=== PATIENT | female | born 2000 | race Caucasian/White ===

== ENCOUNTER 2023-10-17 07:38 | Emergency (ER) | payer BC, SELFPAY ==
[2023-10-17] VITALS (8 sets, daily range): BP systolic 108–127; BP diastolic 51–84
[2023-10-17 08:12] LABS: % Basophils 0.3 % (0-2); % Eosinophils 0.7 % (0-6); % Immature Granulocytes 0.4 % (0-0.5); % Lymphocytes 45.4 % (20.5-51.1); % Monocytes 7.2 % (1.7-9.3); Absolute Eosinophils 0.1 10^3/uL (0-0.7); Absolute Immature Granulocytes 0.1 10^3/uL (0-0.05); Absolute Lymphocytes 5.3 10^3/uL (1.2-3.4); Absolute Monocytes 0.8 10^3/uL (0.1-0.6); Absolute Neutrophils 5.3 10^3/uL (1.4-6.5); Hematocrit 38.9 % (37.0-47.0); Hemoglobin 13.9 g/dL (12.0-16.0); Mean Corp Hgb Conc. 35.7 g/dL (33.0-37.0); Mean Corpuscular Volume 89.6 fL (81.0-99.0); Mean Platelet Volume 9.7 fL (7.4-10.4); Nucleated Red Blood Cells % 0 %; Platelet Count 376 10^3/uL (130-400); Red Blood Cell Count 4.34 10^6/uL (4.20-5.40); Red Cell Dist. Width 11.5 % (11.5-14.5); White Blood Cell Count 11.6 10^3/uL (4.8-10.8)
[2023-10-17] MEDS: NSS 1000 IV (08:15)
[2023-10-17] MEDS: TORADOL 15 MG IV (08:16)
[2023-10-17] MEDS: ZOFRAN 4 MG IV (08:16)
[2023-10-17 08:27] LABS: ALT (SGPT) 13 U/L (0-35); AST (SGOT) 20 U/L (14-36); Albumin 4.4 g/dl (3.5-5.0); Alkaline Phosphatase 65 U/L (38-126); Blood Urea Nitrogen 12 mg/dl (7-17); Calcium 9.4 mg/dl (8.4-10.2); Carbon Dioxide 16 mmol/L (22-30); Chloride 106 mmol/L (98-107); Glucose 172 mg/dl (70-99); Lipase 111 U/L (23-300); Potassium 3.3 mmol/L (3.5-5.1); Sodium 136 mmol/L (135-145); Total Bilirubin 0.5 mg/dl (0.2-1.3); Total Protein 6.3 g/dl (6.3-8.2); eGFR > 60.00
[2023-10-17 08:31] LABS: HCG, Serum Qualitative Screen Negative
[2023-10-17 10:45] LABS: Urine Albumin Negative (Neg - Trace); Urine Bilirubin Negative (Negative); Urine Character Clear (Clear); Urine Color Yellow; Urine Glucose Negative (Negative); Urine Ketone Negative (Negative); Urine Leukocyte Negative (Negative); Urine Nitrite Negative (Negative); Urine Occult Blood 4+ (Negative); Urine Specific Gravity 1.005 (<1.030); Urine Urobilinogen Negative (Neg - 1+); Urine pH 6.5 (5.0-9.0)
[2023-10-17 10:57] LABS: Urine Bacteria Few (Negative); Urine Red Blood Cell 0-2 /HPF (0-2); Urine White Cell 0-2 /HPF (0-5)
--- NOTE | 2023-10-17 11:32 | ED.GENMED ---
History of Present Illness
General
Chief Complaint: Abdominal Symptoms
Time Seen by Provider: 10/17/23 08:04
History of Present Illness
History of Present Illness:
Sudden onset of abdominal pain at 7 AM. Started her menses today. Had a similar episode last month but not as severe. Pain is diffuse across her lower abdomen. No back pain flank pain urinary symptoms. No fever.
Past History
Past History
ED Past Medical History: None and Psychiatric (ADHD)
Phy Exam
Physical Exam
Physical Exam:
GENERAL: Alert and oriented. Some tremors. Initially pale.
EYE: Orbits normal.
NECK: Supple
CARDIAC: Regular rate and rhythm without any obvious murmurs.
LUNGS: Clear breath sounds,normal
ABDOMEN: Soft, mild diffuse lower abdominal tenderness. No rebound or guarding no mass or hernia
NEUROLOGICAL: Alert and oriented , grossly non-focal
SKIN: Pale
MUSCULOSKELETAL: No edema,no deformity.Good color
PSYCH: Normal and appropriate interaction.
Course
Orders/Labs/Results
Orders:
Orders
10/17/23 07:57
Test Result ONCE
10/17/23 08:03
CMP [Comprehensive Metabolic Panel] Urgent
Complete Blood Count/With Diff Urgent
HCG, Serum Qualitative Screen Urgent
Lipase Urgent
10/17/23 08:04
IV Insert/Care/Rem.- Treatment PRN
0.9% Sodium Chloride 1000 ml [Nss] 1,000 ml IV BOLUS
US Pelvis W Transvag Combined Urgent
Comment:
Reason For Exam: Severe pelvic pain. Evaluate for torsion or ectop
10/17/23 08:05
Ketorolac [Toradol] 15 mg .ROUTE .STK-MED ONE
Ondansetron Injectable [Zofran] 4 mg .ROUTE .STK-MED ONE
10/17/23 08:06
Ketorolac [Toradol] 15 mg IV NOW STA
Ondansetron Injectable [Zofran] 4 mg IV NOW STA
10/17/23 08:13
Type+Screen Urgent
10/17/23 10:38
Urinalysis Reflex To Culture Urgent
Date Specimen was Collected: 10/17/23
Time Specimen was Collected: 10:37
Urine Microscopic Reflex Cult Urgent
Abnormal Lab Results
10/17/23 10/17/23
08:03 10:38
WBC 11.6 H 10^3/uL
(4.8-10.8)
MCH 32.0 H pg
(27.0-31.0)
Abs Immat Gran (auto) 0.1 H 10^3/uL
(0-0.05)
Absolute Lymphs (auto) 5.3 H 10^3/uL
(1.2-3.4)
Absolute Monos (auto) 0.8 H 10^3/uL
(0.1-0.6)
Potassium 3.3 L mmol/L
(3.5-5.1)
Carbon Dioxide 16 L mmol/L
(22-30)
Glucose 172 H mg/dl
(70-99)
Ur Occult Blood Reflex 4+ A
(Negative)
Urine Bacteria (Reflex) Few A
(Negative)
10/17/23 08:03
10/17/23 08:03
Vital Signs
Initial and Last Documented VS:
Initial Vital Signs
Temp Pulse Resp BP Pulse Ox
97.6 F 80 22 127/61 96
10/17/23 07:40 10/17/23 07:40 10/17/23 07:40 10/17/23 07:40 10/17/23 07:40
Last Documented Vital Signs
Temp Pulse Resp BP Pulse Ox
97.6 F 88 22 116/79 97
10/17/23 07:40 10/17/23 08:39 10/17/23 07:40 10/17/23 10:00 10/17/23 10:30
*Radiology
Radiology exam reviewed: radiology read reviewed (Physiologic fluid. Ovaries normal. Good flow to both ovaries)
*Pulse Oximetry
Patient hypoxic: no
*Critical Care Note
Total Time (30-74mins, 75-104mins- exclusive of procedures): Not Applicable
Update Note
Update Note:
Patient with significant improvement and appears well. No distress. Workup unremarkable. Clearly this was an acute abdominal pain the first day of her menses. Would be most consistent with a ruptured cyst. Highly doubt torsion given her current
clinical appearance and negative ultrasound. No ectopic. Discussed CT scan versus observation. Pluses and minuses discussed. Will hold on CT at this time.
ED Attending Note
-
Portions of this chart may have been created with voice recognition software.� Occasional wrong word or��sound alike� substitutions may have occurred due to the inherent limitations of voice recognition software.
Discharge Plan
Departure
Patient Disposition: Home (Routine Discharge)
Date of Disposition: 10/17/23
Time of Disposition: 11:35
Patient with high blood pressure during this ER visit?: No
Discharge Problem:
Sudden pelvic pain, Minimal hypokalemia, Mild hyperglycemia
Instructions: Hypokalemia, Pelvic Pain (DC), High Blood Sugar, Adult ED
Referrals:
Anibal Vilchis I., [Family Provider] -
Chanda Tamayo MD [Active] -
Activity Restrictions/Additional Instructions:
Call your [facility] physician Wednesday for close follow-up
Return immediately as discussed with increasing pain fever or any other concerning symptoms
Get your blood sugar rechecked
Interventions
Interventions:
*Risk Screen - Suicide Last Done: 10/17/23 08:17
*General Assessment Last Done: 10/17/23 07:57
*Neglect/Abuse Screening Last Done: 10/17/23 08:17
*ED COVID-19 Vaccine History Last Done: 10/17/23 07:57
UG-Eqoyod-[id number] Assessment Last Done: 10/17/23 08:01
Discharge Date and Time
Print Language: BHUTANESE
== END 2023-10-17 11:47 | disposition home or self-care (01) ==
LOC: EMR 07:38
PROVIDERS: EMERGENCY PHYSICIAN Emergency Medicine; FAMILY PHYSICIAN Internal Medicine
DX: R10.2 Pelvic and perineal pain (principal); E87.6 Hypokalemia; R73.9 Hyperglycemia, unspecified
CPT/HCPCS: 99284; 96374; 96375; 96361 ×2; 76830; 76856; 80053; 81003; 81015; 83690; 84703; 85025; 86850; 86900; 86901